=== PATIENT | female | born 1980 | race African-American/Black ===

== ENCOUNTER 2020-03-11 12:14 | Emergency (ER) | payer SELFPAY ==
[~2020-03-11] VITALS: Ht 152.4 cm; Wt 68.0 kg
[2020-03-11 12:50] VITALS: BP 139/80
[2020-03-11 13:26] LABS: Urine Bacteria FEW /hpf (None Seen); Urine Blood 3+ /uL (Negative); Urine Mucus FEW (None Seen); Urine WBC 1684 /hpf (0 - 5); Urine WBC Clumps PRESENT /hpf (None Seen)
== END 2020-03-11 13:35 | disposition home or self-care (01) ==
LOC: ER 12:14
DX: N39.0 Urinary tract infection, site not specified (principal)
CPT/HCPCS: 81001; 81025